=== PATIENT | female | born 1970 | race Caucasian/White ===

== ENCOUNTER 2016-11-26 11:24 | Emergency (ER) | payer BC ==
[2016-11-26 12:23] VITALS: BP 106/58
--- NOTE | 2016-11-26 14:39 | UC ---
Skin Complaint HPI - History of Current Complaint Chief Complaint: UCSkin Time Seen by Provider: 11/26/16 14:16 Stated Complaint: SOFT TISSUE Hx Obtained From: Patient Hx Last Menstrual Period: mirana ?: No Onset/Duration: Gradual Onset - started 2 days ago with painful lump under chin , denies recent illness denies worse swelling after eating, states mouth is moist Aggravating: Touch Alleviating: Nothing Associated Signs & Symptoms: Positive: Negative - Allergy/Home Medications Allergies/Adverse Reactions: Allergies Allergy/AdvReac Type Severity Reaction Status Date / Time Penicillins Allergy Intermediate Hives Verified 08/10/12 14:45 Home Medications: Home Medications Aspirin [Aspirin 81 MG TAB] 81 mg PO 11/26/16 [History] Atenolol TAB* [Tenormin TAB* 25 MG] 12.5 mg PO DAILY 11/26/16 [History Confirmed 11/26/16] Biotin 1 mg PO 11/26/16 [History] Herod-3 Fatty Acids [Fish Oil] 1,000 mg PO 11/26/16 [History] Review of Systems Constitutional: Negative Respiratory: Negative Cardiovascular: Negative Psychological: Negative All Other Systems Reviewed And Are Negative: Yes PMH/Surg Hx/FS Hx/Imm Hx Previously Healthy: Yes Cardiovascular History: Myocardial Infarction - Surgical History Surgical History: Yes Surgery Procedure, Year, and Place: 1998, [facility]. Angioplasty 04/02/12 - Family History Known Family History: Positive: None - Social History Occupation: Employed Full-time Lives: With Family Alcohol Use: Rare Substance Use Type: None Smoking Status (MU): Former Smoker Physical Exam Triage Information Reviewed: Yes Appearance: Well-Appearing, No Pain Distress, Well-Nourished Vital Signs: Initial Vital Signs Temp 98.3 F 11/26/16 12:20 Pulse 57 11/26/16 12:20 Resp 18 11/26/16 12:20 BP 106/58 11/26/16 12:20 Pulse Ox 100 11/26/16 12:20 ENT: Positive: Normal ENT inspection - mouth moist Dental Exam: Normal Respiratory Exam: Normal Cardiovascular Exam: Normal Neurological Exam: Normal Psychological Exam: Normal Skin: Positive: Other - small. pea sized tender mobile mass submental area chin , no redness or warmth no other LAD Course/Dx - Differential Diagnoses - Skin Complaint Differential Diagnoses: Abscess, Lymphadenitis - Diagnoses Provider Diagnoses: lymphadenopathy Discharge - Discharge Plan Condition: Good Disposition: HOME Patient Education Materials: Lymphadenopathy (ED) Referrals: Ranjeet Berry MD [Primary Care Provider] - 2 Days (if no better) Additional Instructions: drink plenty of fluids return if problems worsen recheck with primary care provider if no better 3-5 days
== END 2016-11-26 14:53 | disposition home or self-care (01) ==
LOC: UCEAST 11:24
DX: R59.1 Generalized enlarged lymph nodes (principal); I25.2 Old myocardial infarction; Z87.891 Personal history of nicotine dependence
CPT/HCPCS: 99211; G0463

== ENCOUNTER 2016-11-29 07:54 | Emergency (ER) | payer BC ==
[2016-11-29 08:21] LABS: Hematocrit 43 % (35-47); Hemoglobin 14.4 g/dl (12.0-16.0); Mean Corpuscular HGB Conc 34 g/dl (31-36); Mean Corpuscular Hemoglobin 31 pg (27-31); Mean Corpuscular Volume 92 fL (80-97); Mean Platelet Volume 9 um3 (7.4-10.4); Red Blood Count 4.66 10^6/ul (4.0-5.4); Red Cell Distribution Width 13 % (10.5-15); White Blood Count 7.9 10^3/ul (3.5-10.8)
--- NOTE | 2016-11-29 08:32 | RAD ---
Indication: Left-sided facial droop, speech abnormality. CT of the brain was performed without IV contrast. Ventricular system midline. No midline shift is noted. The extra-axial spaces are unremarkable. There is no evidence of intracranial mass or hemorrhage. No other high or low density lesions are identified. Mastoid air cells and paranasal sinuses are otherwise unremarkable. Mucus retention cyst is noted in the left maxillary sinus. IMPRESSION: No intracranial mass or hemorrhage is noted.
[2016-11-29 08:40] LABS: Albumin 4.5 g/dL (3.2-5.2); BUN/Creatinine Ratio 18.9 (8-20); Calcium 9.1 mg/dL (8.6-10.3); EGFR African American 109.1 (>60); EGFR Non-African American 84.9 (>60); Globulin 2.6 g/dL (2-4); Potassium 4.1 mmol/L (3.5-5.0); Total Bilirubin 1.9 mg/dL (0.2-1.0); Total Protein 7.1 g/dL (6.4-8.9)
--- NOTE | 2016-11-29 08:55 | RAD ---
INDICATION: Tremors. COMPARISON: Comparison is made with prior chest x-ray study from April 02, 2015. TECHNIQUE: Dual-energy PA and lateral views of the chest were obtained. FINDINGS: The heart is within normal limits in size. Mediastinal and hilar contours appear within normal limits. The lungs are clear. No pleural effusion is present. IMPRESSION: NO EVIDENCE FOR ACTIVE CARDIOPULMONARY DISEASE.
[2016-11-29] MEDS ORDERED: Iohexol 350* (CONTRAST) 500 ML MDV IV ONE (09:49)
[2016-11-29] MEDS ORDERED: Aspirin Low Dose CHEW TAB* 81 MG PO SCH (10:00)
[2016-11-29 10:18] LABS: Urine Bacteria 1+ (Absent); Urine Bilirubin Negative (Negative); Urine Glucose Negative (Negative); Urine Nitrite Negative (Negative)
[2016-11-29 10:24] LABS: Benzodiazepine Urine Screen None Detected (None Detect)
--- NOTE | 2016-11-29 11:07 | RAD ---
INDICATION: TIA evaluate for stenosis. COMPARISON: Comparison is made with a prior CT of the brain from November 29, 2016. TECHNIQUE: A CT angiogram of the head and neck was performed following intravenous injection of 80 ml of Omnipaque 350 nonionic contrast. Contiguous axial sections were obtained from the thoracic inlet through the skull vertex. Images were reconstructed in the coronal and sagittal planes and in a 3-D volume rendered format. The distal cervical internal carotid artery diameter is used as the denominator for stenosis measurement. FINDINGS: RIGHT CAROTID: The common and internal carotid arteries appear patent without evidence for stenosis. LEFT CAROTID: The common and internal carotid arteries appear patent without evidence for stenosis. VERTEBRALS: The vertebral arteries appear patent and symmetric. CTA BRAIN: The internal carotid, anterior and middle cerebral arteries appear patent without evidence for high-grade stenosis or occlusion. The vertebral, basilar and posterior cerebral arteries appear patent without evidence for high-grade stenosis or occlusion. No gross focal perfusion abnormalities are seen. No aneurysm or vascular malformation is seen. NECK: No significant enlarged lymph nodes are seen within the neck. The thyroid, parotid and submandibular glands appear to be within normal limits. The lung apices appear clear. There is a 2 cm mucous retention cyst within the left maxillary sinus. The sinuses and mastoid air cells are otherwise clear. IMPRESSION: NO EVIDENCE FOR CAROTID STENOSIS OR LARGE VESSEL INTRACRANIAL THROMBUS. CPT II Codes: 3100F
--- NOTE | 2016-11-29 11:36 | RAD ---
INDICATION: Left-sided facial droop COMPARISON: CTA head and neck November 29, 2016; CT brain November 29, 2016 TECHNIQUE: sagittal T1 FLAIR, axial diffusion, axial T1 FLAIR, axial T2, axial T2 FLAIR, and SWI images were acquired. FINDINGS: Craniocervical junction: The craniocervical junction appears normal. Ventricles/sulci: The ventricles and cisterns are normal in size and configuration for age. Brain parenchyma: There are no acute appearing focal parenchymal abnormalities. There are scattered T2-weighted hyperintensities in periventricular and subcortical white matter consistent with mild chronic microvascular ischemic change. There is no evidence of intracranial mass or mass effect. The diffusion weighted images show no evidence of acute ischemia. Intracranial hemorrhage: There is no intracranial hemorrhage. Extra-axial spaces: There are no extra-axial fluid collections or masses. Orbits: There are no MR abnormalities of the orbital structures. Paranasal sinuses/mastoid: The paranasal sinuses are clear. The mastoid air cells are well aerated.. Vascular: No abnormalities are seen. Other: None IMPRESSION: SCATTERED T2-WEIGHTED HYPERINTENSITIES CONSISTENT WITH MILD CHRONIC MICROVASCULAR ISCHEMIC CHANGE. NO ACUTE FINDINGS.
[2016-11-29] MEDS ORDERED: ValACYclovir (*) 1 GM TAB PO ONE (12:00)
[2016-11-29] MEDS ORDERED: ValACYclovir (*) 500 MG TAB PO ONE ×2 (12:00→13:00)
--- NOTE | 2016-11-29 13:23 | ED ---
Cory Davies Alfonso, scribed for Indra Ornelas MD on 11/29/16 at 0812 . Complex/Multi-Sys Presentation - HPI Summary HPI Summary: This patient is a 46 year old F BIBA to [facility] with a chief complaint of tremors since 0645 this morning. Pt states I woke up and noticed the left side of my face drooping and I cannot control the shaking. Pt rates the pain 0/10 in severity. Symptoms aggravated and alleviated by nothing. Pt reports blurry vision, change in speech, and left- sided facial droop. She denies recent trauma. Pt was d/c from [facility] 3 days ago with provider diagnoses of abscess and lymphadenitis. PMHx of anxiety (pt reports with tremoring but less severe),[place] ( 2011), and HTN. - History Of Current Complaint Time Seen by Provider: 11/29/16 08:03 Hx Obtained From: Patient Onset/Duration: Sudden Onset, Lasting Hours - Since 0645 this morning, Still Present Timing: Constant Severity Currently: Moderate Severity Initially: Moderate Aggravating Factor(s): Nothing Alleviating Factor(s): Nothing Associated Signs And Symptoms: Positive: Other - Pt reports blurry vision, change in speech, and left- sided facial droop.. Negative: Recent Trauma - Allergies/Home Medications Allergies/Adverse Reactions: Allergies Allergy/AdvReac Type Severity Reaction Status Date / Time Penicillins Allergy Intermediate Hives Verified 08/10/12 14:45 Home Medications: Home Medications Aspirin EC Low Dose* [Ecotrin EC Low Dose 81 MG*] 81 mg PO DAILY 11/29/16 [ History Confirmed 11/29/16] PMH/Surg Hx/FS Hx/Imm Hx Endocrine/Hematology History: Denies: Hx Diabetes Cardiovascular History: Reports: Hx Hypertension, Hx Myocardial Infarction - 2011 Psychiatric History: Reports: Hx Anxiety - Surgical History Surgery Procedure, Year, and Place: 1998, [place] [facility]. Angioplasty 04/02/12 Hx Anesthesia Reactions: No - Family History Known Family History: Positive: Other - Cancer - Social History Alcohol Use: Rare Substance Use Type: Reports: None Smoking Status (MU): Former Smoker Review of Systems Positive: Blurred Vision Neurological: Other - Positive tremors, change in speech, and left- sided facial droop. All Other Systems Reviewed And Are Negative: Yes Physical Exam - Summary Physical Exam Summary: VITAL SIGNS: Reviewed. GENERAL: Patient is a well-developed and nourished female who is lying comfortable in the stretcher. Patient is not in any acute respiratory distress. HEAD AND FACE: No signs of trauma. No ecchymosis, hematomas or skull depressions. No sinus tenderness. EYES: PERRLA, EOMI x 2, No injected conjunctiva, no nystagmus. No photophobia. EARS: Hearing grossly intact. Ear canals and tympanic membranes are within normal limits. MOUTH: Oropharynx within normal limits. NECK: Supple, trachea is midline, no adenopathy, no JVD, no carotid bruit, no c- spine tenderness, neck with full ROM. No meningeal signs, no Kernig's or brudzinskis signs. CHEST: Symmetric, no tenderness at palpation LUNGS: Clear to auscultation bilaterally. No wheezing or crackles. CVS: Regular rate and rhythm, S1 and S2 present, no murmurs or gallops appreciated. ABDOMEN: Soft, non-tender. No signs of distention. No rebound no guarding, and no masses palpated. Bowel sounds are normal. EXTREMITIES: FROM in all major joints, no edema, no cyanosis or clubbing. NEURO: Alert and oriented x 3. No acute neurological deficits. Speech is normal and follows commands. Intentional tremors. SKIN: Dry and warm Triage Information Reviewed: Yes Vital Signs On Initial Exam: Initial Vitals Temp Pulse Resp BP Pulse Ox 99.0 F 77 20 139/106 99 11/29/16 08:04 11/29/16 08:04 11/29/16 08:04 11/29/16 08:04 11/29/16 08:04 Vital Signs Reviewed: Yes Diagnostics - Vital Signs Vital Signs Temp Pulse Resp BP Pulse Ox 11/29/16 09:00 71 127/66 98 11/29/16 08:47 125/66 11/29/16 08:39 99.4 F 73 13 125/66 99 11/29/16 08:17 75 22 99 11/29/16 08:16 73 16 100 11/29/16 08:04 99.0 F 77 20 139/106 99 - Laboratory Lab Results: Lab Results 11/29/16 11/29/16 11/29/16 Range/Units 08:10 08:10 08:10 WBC 7.9 (3.5-10.8) 10^3/ul RBC 4.66 (4.0-5.4) 10^6/ul Hgb 14.4 (12.0-16.0) g/dl Hct 43 (35-47) % MCV 92 (80-97) fL MCH 31 (27-31) pg MCHC 34 (31-36) g/dl RDW 13 (10.5-15) % Plt Count 194 (150-450) 10^3/ul MPV 9 (7.4-10.4) um3 Neut % (Auto) 73.5 (38-83) % Lymph % (Auto) 18.3 L (25-47) % Wharton % (Auto) 7.4 (1-9) % Eos % (Auto) 0.3 (0-6) % Baso % (Auto) 0.5 (0-2) % Absolute Neuts (auto) 5.8 (1.5-7.7) 10^3/ul Absolute Lymphs (auto) 1.4 (1.0-4.8) 10^3/ul Absolute Monos (auto) 0.6 (0-0.8) 10^3/ul Absolute Eos (auto) 0 (0-0.6) 10^3/ul Absolute Basos (auto) 0 (0-0.2) 10^3/ul Absolute Nucleated RBC 0 10^3/ul Nucleated RBC % 0 INR (Anticoag Therapy) 0.89 (0.89-1.11) Sodium 136 (133-145) mmol/L Potassium 4.1 (3.5-5.0) mmol/L Chloride 105 (101-111) mmol/L Carbon Dioxide 23 (22-32) mmol/L Anion Gap 8 (2-11) mmol/L BUN 14 (6-24) mg/dL Creatinine 0.74 (0.51-0.95) mg/dL Est GFR ( Amer) 109.1 (>60) Est GFR (Non-Af Amer) 84.9 (>60) BUN/Creatinine Ratio 18.9 (8-20) Glucose 105 H (70-100) mg/dL Lactic Acid (0.5-2.0) mmol/L Calcium 9.1 (8.6-10.3) mg/dL Total Bilirubin 1.90 H (0.2-1.0) mg/dL AST 16 (13-39) U/L ALT 13 (7-52) U/L Alkaline Phosphatase 53 (34-104) U/L Troponin I 0.00 (<0.04) ng/mL Total Protein 7.1 (6.4-8.9) g/dL Albumin 4.5 (3.2-5.2) g/dL Globulin 2.6 (2-4) g/dL Albumin/Globulin Ratio 1.7 (1-3) / Range/Units 08:10 WBC (3.5-10.8) 10^3/ul RBC (4.0-5.4) 10^6/ul Hgb (12.0-16.0) g/dl Hct (35-47) % MCV (80-97) fL MCH (27-31) pg MCHC (31-36) g/dl RDW (10.5-15) % Plt Count (150-450) 10^3/ul MPV (7.4-10.4) um3 Neut % (Auto) (38-83) % Lymph % (Auto) (25-47) % Wharton % (Auto) (1-9) % Eos % (Auto) (0-6) % Baso % (Auto) (0-2) % Absolute Neuts (auto) (1.5-7.7) 10^3/ul Absolute Lymphs (auto) (1.0-4.8) 10^3/ul Absolute Monos (auto) (0-0.8) 10^3/ul Absolute Eos (auto) (0-0.6) 10^3/ul Absolute Basos (auto) (0-0.2) 10^3/ul Absolute Nucleated RBC 10^3/ul Nucleated RBC % INR (Anticoag Therapy) (0.89-1.11) Sodium (133-145) mmol/L Potassium (3.5-5.0) mmol/L Chloride (101-111) mmol/L Carbon Dioxide (22-32) mmol/L Anion Gap (2-11) mmol/L BUN (6-24) mg/dL Creatinine (0.51-0.95) mg/dL Est GFR ( Amer) (>60) Est GFR (Non-Af Amer) (>60) BUN/Creatinine Ratio (8-20) Glucose (70-100) mg/dL Lactic Acid 1.4 (0.5-2.0) mmol/L Calcium (8.6-10.3) mg/dL Total Bilirubin (0.2-1.0) mg/dL AST (13-39) U/L ALT (7-52) U/L Alkaline Phosphatase (34-104) U/L Troponin I (<0.04) ng/mL Total Protein (6.4-8.9) g/dL Albumin (3.2-5.2) g/dL Globulin (2-4) g/dL Albumin/Globulin Ratio (1-3) Result Diagrams: 11/29/16 08:10 11/29/16 08:10 Lab Statement: Any lab studies that have been ordered have been reviewed, and results considered in the medical decision making process. - Radiology CXR Radiology Interpretation Completed By: Radiologist - NO EVIDENCE FOR ACTIVE CARDIOPULMONARY DISEASE. - CT Brain CT CT Interpretation Completed By: Radiologist - No intracranial mass or hemorrhage is noted. 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 Non-Paretic Hand: Both Correctly Best Gaze (Only Horizontal Eye Movement): Normal Visual Field Testing: No Visual Loss Facial Paresis-Pt to Smile & Close Eyes or Grimace Symmetry: Normal/Symmetrical Motor Function - Right Arm: No Drift-Holds 10 Seconds Motor Function - Left Arm: No Drift-Holds 10 Seconds Motor Function - Right Leg: No Drift-Holds 10 Seconds Motor Function - Left Leg: No Drift-Holds 10 Seconds Limb Ataxia-Must be out of Proportion to Weakness Present: Absent Sensory (Use Pinprick to Test Arms/Legs/Trunk/Face): Normal Best Language (Describe Picture, Name Items): No Aphasia Dysarthria (Read Several Words): Normal Extinction and Inattention: No Abnormality Total Score: 0 Complex Multi-Symp Course/Dx Assessment/Plan: This patient is a 46 year old F BIBA to [facility] with a chief complaint of tremors since 0645 this morning. Pt states I woke up and noticed the left side of my face drooping and I cannot control the shaking. Pt rates the pain 0/10 in severity. Symptoms aggravated and alleviated by nothing. Pt reports blurry vision, change in speech, and left- sided facial droop. She denies recent trauma. Pt was d/c from [facility] 3 days ago with provider diagnosis of abscess and lymphadenitis. PMHx of anxiety (pt reports with tremoring but less severe),[place] (2011), and HTN. In the ED course an IV access was obtained. Patient was placed in a cardiac rn. Patient was started with IV fluids. Labs without any significant abnormality. Troponin #1: 0.00. EKG shows a NSR at 68 BPM w/o ST elevations. CXR impression: No acute pathology. Head CT IMPRESSION: No intracranial mass or hemorrhage is noted. I discuss my physical exam, findings and test results with Dr. Ty from the hospitalist services and she agrees to admit patient to his services. Patient is hemodynamically stable alert and oriented x 3. I discussed the case with Dr Dunlap and she recommends to admit the patient to the hospitalist services. I discussed the case with Dr. Ty and after examination she ordered and MRI and requested for Dr. Dunlap to see the patient. Dr Dunlap examined the patient and ordered a EEG. After her examination she decided that patient has [place] Palsy. Patient was given Valtrex and prednisone. She will be discharged home with F/U PMD. I discussed all the findings and test results with the patient. Patient was instructed to return to the emergency room immediately if any of the symptoms return or worsens. Patient understands and agrees. Plan of care was discussed with the patient and patient understands and agrees with the plan of care. All questions were answered at patient satisfaction. There were no further complaints or concerns. Patient is alert and oriented x 3. Patient vital signs are stable. Patient is to follow up with primary care physician in the next 2 to 3 days. Patient understands and agrees. - Diagnoses Differential Diagnoses/HQI/PQRI: CVA, Other - TIA, Seizure, tremors Provider Diagnoses: Márquez's palsy - Physician Notifications Discussed Care Of Patient With: Sara Dunlap Time Discussed With Above Provider: 08:54 Instructed by Provider To: Other - Consulted Dr. Dunlap (neurology) who recommended for admission to r/o TIA. Dr. Dunlap will consult for the patient. Consulted Dr. Ty (hospitalist) at 1105 who agrees to admit the patient. Discharge - Discharge Plan Condition: Stable Disposition: HOME The documentation as recorded by the Cory pat Alfonso accurately reflects the service I personally performed and the decisions made by , Indra Ornelas MD.
[2016-11-29 14:00] VITALS: BP 124/72
--- NOTE | 2016-11-29 15:12 | CONS ---
CC: Dr. Hemphill * NEUROLOGY CONSULTATION: DATE OF CONSULT: 11/29/16. REQUESTING PROVIDER: Dr. Ornelas in the ER. REASON FOR CONSULT: Left facial droop, tremors. HISTORY OF PRESENT ILLNESS: Ana M Oconnor is a 46-year-old woman with a history of anxiety and myocardial infarction in 2011, on atorvastatin, low dose aspirin and atenolol, who presented to the emergency department after waking up with left facial weakness. She reports waking up and her face felt heavy and when she looked in the bathroom mirror, she thought that her face looked weak. She took a picture of herself and then became concerned that she might be having a stroke. She then felt somewhat disoriented and says that she felt generally weak and developed diffuse body trembling. She maintained consciousness throughout this episode. She called her son who met her at the end of her seasonal [place] and was brought to the emergency department for further evaluation. She continues to report that the left side of her face feels different than the right. She has not noticed any vision issues. She did not have any unilateral weakness or numbness of extremities. She has not had any headache with this episode. She did have somewhat monotonous, robotic sounding speech according to her mother with this episode, but that has passed. She denies any hearing changes or noticing any paced changes. She has never had anything like this happen to her in the past. Separately, the patient also describes intermittent episodes of disorientation where she just does not "feel right." She will sometimes zone out. She says she still maintains consciousness during these episodes and it is difficult to quantify how often these are occurring. Her mother says that when she was a child, she was diagnosed with a petit mal seizure when she was on the school bus one day and was fidgeting around, trying to put something in her pocket and could not seem to find her pocket. She may have had an EEG at that time, which was possibly abnormal, but mom is not sure. She has never had any convulsions. When asked if she has lost consciousness in the past, she says that she has episodes of "hypotension" and 4 times this month she has requested assistance from her fiance in getting out of the shower because she felt lightheaded and faint. She also has a history of a myocardial infarction in the past, which was apparently small and secondary to a branch vessel, which was too small to be intervened upon. She is a patient of Dr. Shepard and does not otherwise have a PCP. She has a family history of autoimmunity including hypercoagulable state in her maternal aunt, who had lupus anticoagulant and also sarcoidosis. Her mother has Graves disease and apparently thrombocytopenia. The patient herself is not aware of any hypercoagulable state in herself. PAST MEDICAL HISTORY: 1. Myocardial infarction as mentioned above. 2. Probable migraine headaches. 3. Anxiety. HOME MEDICATIONS: 1. Biotin 1 mg daily. 2. Lipitor 40 mg daily. 3. Atenolol 12.5 mg daily. 4. Aspirin 81 mg daily. 5. Fish oil 1000 mg daily. 6. CoQ10 200 mg daily. ALLERGIES: PENICILLIN causes hives. FAMILY HISTORY: As noted in the HPI. SOCIAL HISTORY: She has a 17-year-old son. She is engaged to be . 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 She quit smoking when she was 34. REVIEW OF SYSTEMS: She denies any recent viral illness, but did go to urgent care recently for a painful lymph node under her chin, which is now better. PHYSICAL EXAM: Vital Signs: Temperature 99.4, blood pressure 113/54, heart rate 65, oxygen saturation is 99% on room air. On general examination, she is pleasant, in no acute distress. She has a mildly anxious affect. Her heart is in a regular rate and rhythm with no murmurs, rubs, or gallops. Lungs are clear to auscultation bilaterally. She has some blotchiness/hives over her chest and neck which happens when she gets anxious. She is not tremulous. She has occasional myokymia of the orbicularis oculi on the left. No lesions in the external auditory canal on the left. On neurologic examination, she was fully awake, alert and oriented. Her speech is clear without dysarthria or aphasia. On cranial nerve testing, the pupils are equal, round and reactive from 4 to 2 mm bilaterally. Versions are full without nystagmus or diplopia. Visual sanchez are full to confrontation with no extinction to double simultaneous stimulation. The palpebral fissures are equal bilaterally. She does have slightly delayed blink on the left. Her eye closure is full and symmetric. It appears that the left forehead raises slightly less than the right forehead. She has flattening of the left nasolabial fold and slightly less activation with smile. Lip closure and cheek puff are pretty equal. Hearing is intact to voice and there is no obvious hyperacusis with the tuning fork placed outside of either ear. The palate elevates symmetrically and the tongue is midline. Her sensation to taste was tested with sugar water and she was not able to taste the sweet water on the left side of her tongue, but was able to taste it on the right. Shoulder shrug is full and symmetric. On motor examination, she has normal strength in the upper and lower extremities with no pronator drift. Sensation is intact to light touch in the upper and lower extremities. Finger-to- nose is intact without ataxia. Reflexes are 2+ throughout. Romberg is negative. Her gait is normal and she is able to heel-toe and tandem walk, though she says she feels a little unsteady with tandem walking. DIAGNOSTIC STUDIES/LAB DATA: CBC was unremarkable. CMP was notable for a glucose of 105 and total bilirubin of 1.9 and otherwise unremarkable. Her lactate is 1.4. Urinalysis showed 2+ blood, trace leukocyte esterase and 1+ bacteria as well as the presence of epithelial cells. Urine toxicology was negative. A CT angiogram of her head and neck was obtained and was unremarkable. Brain MRI was also obtained and was personally reviewed and shows no areas of restricted diffusion. There are few scattered areas of elevated T2/FLAIR signal in the periventricular white matter which are probably consistent with microvascular changes. IMPRESSION AND PLAN: Ana M Oconnor is a 46-year-old woman with a history of myocardial infarction in the past, who presented with slight left facial weakness in addition to monotonous speech and whole body trembling with preserved consciousness. 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 Her MRI does not show any acute ischemic lesions. I have spoken with Dr. Ornelas about my impression and I do not feel that she needs an admission to the hospital at this time. She will be started on prednisone plus or minus acyclovir. The typical course of Márquez's palsy was discussed with the patient including eye care if her eye becomes significantly weak. I think that the overall body tremulousness as well as the monotonous, robotic speech was likely related to anxiety secondary to worry that she was possible having a stroke. This was discussed with the patient and her mother as well. Separately, she describes these episodes of disorientation and the possibility of a seizure in the past. Since she is here now, we will obtain a quick EEG on her to screen for any epileptiform abnormalities. If anything unusual is found , then I will discuss further with her starting an antiepileptic medication versus following up with me as an outpatient. Thank you for this consultation. [id number]/[facility] #: [id number] NUBIA
--- NOTE | 2016-11-29 15:45 | CONS ---
CC: Dr. Dunlap; Dr. Hemphill; Dr. Ornelas * CONSULTATION REPORT: DATE OF CONSULT: 11/29/16 - EMERGENCY DEPT PRIMARY CARE PROVIDER: None. SHORE WORKING SUPERVISOR: Dr. Hemphill. REQUESTING PHYSICIANS: Dr. Dunlap and Dr. Ornelas. REASON FOR CONSULTATION: Possibility of TIA/stroke. The consultation was requested by Dr. Ornelas from Emergency Medicine for possibility of patient's admission. CHIEF COMPLAINT: Left sided facial droop. HISTORY OF PRESENT ILLNESS: Ana M Oconnor is a 46-year-old female with history of coronary artery disease who presented to the hospital complaining of left facial droop. The patient stated that she woke up today in the morning and she noted that her left side of her face was "flat". She took a picture of herself. She also stated that at that point she noted that her speech was somewhat "staccato" or robotic as she named it. She stated that her speech was clear but slow and measured. She also at that point developed generalized tremors that when witnessed by Dr. Ornelas, thought to be intentional. Those tremors resolved by the time I saw the patient in consultation. The patient stated that she had been up to that point in her usual state of health, although 2 days ago she was seen in [facility] for enlarged lymph nodes underneath her chin for which she had been taken ibuprofen on a p.r.n. basis and it had been getting better. A consultation was requested by Dr. Ornelas in regards to possibility of evaluation for CVA versus TIA. PAST MEDICAL HISTORY: 1. History of cardiac catheterization at [facility] 4 to 5 years ago with noted small vessel coronary artery disease. It was not amendable for intervention. Since then patient had been under the care of Dr. Hemphill. 2. History of chronic headaches, ever since patient was a teenager. Patient stated that once she was placed on atenolol it helped with the headaches. 3. History of right upper lung nodules 0.[address] Ko most likely benign. 4. History of questionable nonepileptic seizures as a child and chronic migrainous headaches as premenstrual symptom with blurry vision that had improved once patient started using hormonal contraception. MEDICATIONS: Include: 1. Atorvastatin 20 mg daily. 2. Atenolol 12.5 mg daily. 3. Aspirin 81 mg daily. 4. Fish oil 1 capsule daily. 5. Coenzyme Q-10 1 capsule daily. 6. Biotin 1 tablet daily. ALLERGIES: BEE STINGS AND PENICILLIN. PENICILLIN causes hives. FAMILY HISTORY: Positive for mother with Graves. Father with diabetes. Patient's aunt on the mother side also had brain tumor. SOCIAL HISTORY: The patient quit smoking 10 years ago. She drinks alcohol rarely. She denies any drug use. 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 Her surrogate is her mother. REVIEW OF SYSTEMS: Please see history of present illness. Remaining 14- systems were reviewed with the patient and otherwise negative. PHYSICAL EXAMINATION: GENERAL: The patient is very pleasant 46-year-old female who is in no acute distress. The patient is alert, awake and oriented x3. VITAL SIGNS: Blood pressure 113/54, heart rate 65 and regular, respiratory rate 14, oxygen saturation 99% on room air, temperature of 99.4. HEENT: Head atraumatic, normocephalic. Eyes: Pupils equal and reactive to light and accommodation. Oropharynx clear. Mucosa moist. NECK: Supple. No JVD. No bruits bilaterally. CARDIOVASCULAR: Regular rate and rhythm. No murmur. RESPIRATORY: Clear to auscultation bilaterally. ABDOMEN: Soft, nontender. Bowel sounds present in all 4 quadrants. EXTREMITIES: There is no edema. Pulses are +2 bilaterally. No clubbing or cyanosis. On palpation of patient's neck she does have small, enlarged, nontender lymph node just posteriorly to her chin of approximately 1 x 2 cm. There is no other lymphadenopathy noted in the neck. NEURO EVALUATION: Speech clear. The patient appears to have left facial nerve palsy or Márquez's palsy. She does appear to have lesser involvement of the forehead . She definitely has involvement of the eye. Otherwise motor strength is 5/5 bilaterally in bilateral upper and lower extremities. Gait is steady. The tremors that where described by the ER physician resolved. Her speech is clear and fluent. SKIN: On examination of the skin no ecchymotic areas or rashes noted. The patient does have sunburn noted on her abdomen. LABORATORY DATA/DIAGNOSTIC STUDIES: White blood cell count of 8.9, hemoglobin 14.4, hematocrit 43 and platelets of 194. Sodium of 136, potassium 4.1, chloride 105, carbon dioxide 23, BUN 14, creatinine 0.74. Liver function tests were unremarkable. Total bilirubin 1.9, slightly elevated. Urinalysis +2 blood trace esterase, +1 bacteria. Urine drug screen is negative. Head and neck CTA showed "no evidence of carotid stenosis, large vessel of intracranial thrombus." Brain MRI, impression: "Scattered T2 weighted hyperintensities consistent with a chronic microvascular ischemic change. No acute findings." ASSESSMENT AND PLAN: 1. Left sided facial droop which, as per physical evaluation, it appears to be due to Márquez's palsy. The patient does appear to have partial forehead sparing on the left side. Due to that I asked Dr. Dunlap for evaluation. Dr. 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 At this point patient does not require to be admitted for Márquez's palsy. Her other neuro work up including MRI and CT angiogram were negative as above. The patient was referred back to Dr. Ornelas the emergency department physician for further recommendations and outpatient treatment of Márquez's palsy. 2. In regards to patient's history of coronary artery disease, patient had no symptoms of chest pain or shortness of breath. Her troponin was 0. The recommendation is to continue her outpatient medications and followup with Dr. Hemphill as previously scheduled. TIME SPENT: Overall approximately 72 minutes was spent in consultation of this patient. Thank you very much for allowing me to see your patient in consultation. Once again patient was referred back to the ER physician. [id number]/[facility] #: [id number] MTDD
--- NOTE | 2016-11-30 11:44 | EEG ---
ELECTROENCEPHALOGRAPHY: DATE OF STUDY: 11/29/16 LOCATION: The patient is in the emergency department. REQUESTING PHYSICIAN: Dr. Dunlap. CLINICAL PROBLEM: Ana M Oconnor is a 46-year-old woman with a history of myocardial infarction in the past, who presented to the emergency department with left facial weakness, whole body tremors, and monotonous speech. She also describes episodes where she "becomes disoriented," which have been happening periodically for many years. 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 EEG is requested to evaluate for epileptiform abnormalities. MEDICATIONS: 1. CoQ10. 2. Lipitor. 3. Fish oil. 4. Biotin. 5. Aspirin 81 mg. 6. Atenolol. REPORT: The waking background showed appropriate organization with clearly- defined anterior to posterior voltage and frequency gradients. There was a well -defined posterior dominant rhythm of 10-11 Hz, which was symmetrical and showed normal reactivity. Anteriorly, there is an expected pattern of lower voltage, irregular, mixed faster frequencies. Photic stimulation and hyperventilation were not performed. Throughout the recording, there were no epileptiform discharges, focal features , paroxysmal features, or significant interhemispheric asymmetries. CLINICAL IMPRESSION: This is a normal waking EEG. There are no epileptiform abnormalities. [id number]/[facility] #: [id number] M[facility] ST[facility] CHILDREN'S HOSPITALCristina
== END 2016-11-29 14:07 | disposition home or self-care (01) ==
LOC: ED 07:54 → MEDTELE 09:43 → UNDOADMOB 09:43
DX: G51.0 Bell's palsy (principal); H53.8 Other visual disturbances; Z87.891 Personal history of nicotine dependence; Z86.79 Personal history of other diseases of the circulatory system; R47.81 Slurred speech
CPT/HCPCS: 36415; 70450; 70496; 70498; 70551; 71020; 80053; 80307; 81003; 81015; 83605; 84484; 85025; 85610; 87086; 93005; 95816; 99284; A9270-GY; Q9967

== ENCOUNTER 2017-05-16 15:15 | Emergency (ER) | payer BC ==
[2017-05-16 15:42] VITALS: BP 143/65
--- NOTE | 2017-05-16 16:50 | UC ---
Throat Pain/Nasal Bar HPI - HPI Summary HPI Summary: 47 y/o white female presents with left ear/facial pain for the past 2 weeks. She tells me she went to the urgent care in [place] 2 weeks ago for this and was diagnosed with an ear infection and prescribed ceftin for 10 days. She took this and felt some relief, but her symptoms returned as before after stopping antibiotic. 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 Today she has pain above and below her left eye and pain in the left TMJ area. She denies fever, chills, recent illness/URI, cough, ST, vision changes, headache, dizziness, cough, sinus symptoms, chest pain, or SOB. - History of Current Complaint Chief Complaint: UCGeneralIllness Stated Complaint: EAR AND SINUS PAIN Hx Last Menstrual Period: mirena Onset/Duration: Gradual Onset Severity: Moderate Pain Intensity: 5 Pain Scale Used: 0-10 Numeric - Allergies/Home Medications Allergies/Adverse Reactions: Allergies Allergy/AdvReac Type Severity Reaction Status Date / Time Penicillins Allergy Intermediate Hives Verified 05/16/17 15:42 Home Medications: Home Medications Citalopram TAB* [Celexa TAB*] 5 mg PO DAILY 05/16/17 [History Confirmed 05/16/17 ] PMH/Surg Hx/FS Hx/Imm Hx Endocrine History: Dyslipidemia Cardiovascular History: Cardiac Disease, Hypertension GI/ History: Gastroesophageal Reflux - Surgical History Surgical History: Yes Surgery Procedure, Year, and Place: 1998, [facility] [place]. Angioplasty 04/02/12 - Family History Known Family History: Positive: None, Other - Cancer - Social History Occupation: Employed Full-time Lives: With Family Alcohol Use: Rare Substance Use Type: None Smoking Status (MU): Former Smoker Review of Systems Constitutional: Negative Skin: Negative Eyes: Negative ENT: Ear Ache Respiratory: Negative Cardiovascular: Negative Gastrointestinal: Negative Neurological: Negative All Other Systems Reviewed And Are Negative: Yes Physical Exam Triage Information Reviewed: Yes Appearance: Well-Appearing, No Pain Distress, Well-Nourished Vital Signs: Initial Vital Signs Temp 97.8 F 05/16/17 15:38 Pulse 57 05/16/17 15:38 Resp 20 05/16/17 15:38 BP 143/65 05/16/17 15:38 Pulse Ox 100 05/16/17 15:38 Vital Signs Reviewed: Yes Eyes: Positive: Conjunctiva Clear, Other: - EOMI. PERRLA. No injection.. Negative: Conjunctiva Inflamed, Discharge ENT: Positive: Hearing grossly normal, Pharynx normal, TMs normal, Uvula midline. Negative: Pharyngeal erythema, Nasal congestion, Nasal drainage, TM bulging, TM dull, TM red, Tonsillar swelling, Tonsillar exudate, Muffled voice, Hoarse voice, Sinus tenderness Neck: Positive: Supple, No Lymphadenopathy, Other: - NTTP. FROM. Respiratory: Positive: Chest non-tender, Lungs clear, Normal breath sounds, No respiratory distress, No accessory muscle use Cardiovascular: Positive: RRR, No Murmur, Pulses Normal Musculoskeletal: Positive: Strength Intact - B/L UEs, ROM Intact - B/L UEs, Other: - TTP above and below left eye. TTP over left TMJ. No left tragus or auricular tenderness. Neurological: Positive: Alert, Muscle Tone Normal, Other: - CN II-XII grossly intact. No focal deficits. Sensations intact and symmetric V1, V2, V3. No facial drooping. Speech intact. Psychological: Positive: Age Appropriate Behavior Skin: Positive: Other - No rashes, lesions, abrasions, open wounds, erythema, or ecchymosis.. Negative: rashes Throat Pain/Nasal Course/Dx - Course Course Of Treatment: I suspect this is a viral illness causing her pain, but I asked Dr. Weaver to examine the patient as well. On her examination the patient had TMJ pain when opening/closing, but also had tenderness above and below the left eye when palpated. We discussed this case and agreed that there were no urgent exam findings and will proceed to treat conservatively. Pt was advised to try ibuprofen 600mg every 6 hours as needed for pain/discomfort. If her symptoms persist, I have provided her with a number for ENT to schedule a follow up appointment. At this time her diagnosis is of uncertain etiology; TMJ syndrome vs. Viral illness vs. recurrent montes's palsy vs. refractory Middle ear infection are among the most likely possibilities. - Differential Dx/Diagnosis Provider Diagnoses: Left ear pain Discharge - Discharge Plan Condition: Stable Disposition: HOME Referrals: No Primary Care Phys,NOPCP [Primary Care Provider] - Maximus Griffin MD [Medical Doctor] - If Needed Additional Instructions: If you develop a fever, shortness of breath, chest pain, new or worsening symptoms - please call your PCP or go to the ED. Your blood pressure was high at todays visit. Please see your primary provider within 4 weeks for recheck and re-evaluation. 1) May take 600mg ibuprofen every 6 hours as needed for pain. 2) If symptoms worsen or persist, please call ENT at the number below to schedule a follow up appointment.
== END 2017-05-16 17:33 | disposition home or self-care (01) ==
LOC: UCEAST 15:15
DX: H92.02 Otalgia, left ear (principal); Z87.891 Personal history of nicotine dependence
CPT/HCPCS: 99212; G0463

== ENCOUNTER 2017-09-13 14:14 | Emergency (ER) | payer BC ==
[2017-09-13] MEDS ORDERED: diPHENhydraMINE IV* 50 MG/ML 1 ml VIAL (BENADRYL) IV ONE (14:45)
[2017-09-13] MEDS ORDERED: NS 0.9% 1000 ML* 1,000 ML IV ONE ×3 (14:45→17:55)
[2017-09-13] MEDS ORDERED: Metoclopramide IV* 5 MG/ML 2 ML VIAL IV ONE (14:45)
[2017-09-13 15:08] LABS: ABS Basophils 0 10^3/ul (0-0.2); ABS Eosinophils 0 10^3/ul (0-0.6); ABS Lymphocytes 0.9 10^3/ul (1.0-4.8); ABS Monocytes 0.7 10^3/ul (0-0.8); ABS Neutrophils 2.8 10^3/ul (1.5-7.7); ABS Nucleated RBC 0 10^3/ul; Hematocrit 41 % (35-47); Hemoglobin 13.9 g/dl (12.0-16.0); Lymphocyte % 20.6 % (25-47); Mean Corpuscular HGB Conc 34 g/dl (31-36); Mean Corpuscular Hemoglobin 31 pg (27-31); Mean Corpuscular Volume 89 fL (80-97); Mean Platelet Volume 8.1 um3 (7.4-10.4); Nucleated Red Blood Cells % 0.1; Platelet Count 224 10^3/ul (150-450); Red Blood Count 4.55 10^6/ul (4.0-5.4); Red Cell Distribution Width 14 % (10.5-15); White Blood Count 4.5 10^3/ul (3.5-10.8)
[2017-09-13 15:23] LABS: EGFR Non-African American 80.7 (>60)
[2017-09-13 16:37] LABS: INR 0.99 (0.77-1.02)
--- NOTE | 2017-09-13 18:39 | RAD ---
HISTORY: Abdominal pain, elevated bilirubin COMPARISONS: None TECHNIQUE: Multiple transverse and longitudinal ultrasound images were obtained of the right upper quadrant of the abdomen using grayscale and color Doppler imaging. FINDINGS: LIVER: The liver is normal in shape, size, contour, and echogenicity. There are no focal parenchymal masses. There is normal hepatopedal flow of the portal vein on Doppler imaging. BILIARY TREE: There is no intrahepatic or extrahepatic biliary dilatation. The common duct measures 0.4 cm. GALLBLADDER: The gallbladder is well-visualized. There is no cholelithiasis, gallbladder wall thickening, pericholecystic fluid, or sonographic Dunbar sign. PANCREAS: The head of the pancreas is unremarkable. The tail of the pancreas is not well visualized secondary to overlying bowel gas. RIGHT KIDNEY: The right kidney is normal in shape, size, contour, and echogenicity. There is no hydronephrosis or nephrolithiasis. The right kidney measures 10.6 x 4.2 x 4.4 cm. AORTA AND IVC: The aorta and IVC are unremarkable. FLUID: There are no pleural effusions. There is no free fluid within the hepatorenal recess. OTHER FINDINGS: None. IMPRESSION: NO ACUTE SONOGRAPHIC PATHOLOGY OF THE VISUALIZED PORTION OF THE ABDOMEN.
--- NOTE | 2017-09-13 18:55 | RAD ---
CLINICAL HISTORY: Abdominal pain, diarrhea COMPARISON: None TECHNIQUE: Multiple contiguous axial CT scans were obtained of the abdomen and pelvis, without intravenous contrast enhancement. Coronal and sagittal multiplanar reformations are submitted for review. Oral contrast was not administered. FINDINGS: The study is limited by the lack of intravenous contrast. This limits evaluation of the solid organs and vasculature. LUNG BASES: The lung bases are clear. LIVER: The liver is normal in shape, size, contour, and attenuation. BILE DUCTS: There is no intrahepatic or extrahepatic biliary dilatation. GALLBLADDER: The gallbladder is normal, without pericholecystic inflammatory change. PANCREAS: The pancreas is normal, without mass or ductal dilatation. SPLEEN: Normal in size and appearance. UPPER GI TRACT: Evaluation of the gastrointestinal tract is limited by incomplete gastric distention. The upper GI tract is unremarkable. SMALL BOWEL AND MESENTERY: The small bowel is normal in contour, course, and caliber. There is no obstruction or dilatation. COLON: Evaluation is limited by the lack of oral and intravenous contrast; however, there appears to be diffuse mucosal thickening with mild stranding of the pericolonic fat throughout the colon. The appendix is not well visualized. ADRENALS: Normal bilaterally. KIDNEYS: The kidneys are normal in shape, size, contour, and axis. There is no hydronephrosis or nephrolithiasis. BLADDER: The bladder is smooth in contour. PELVIC ORGANS: The uterus and adnexa are grossly normal for technique. An IUD is noted. There is a simple right ovarian cyst measuring 3.1 cm. AORTA: The aorta is normal. IVC: Unremarkable LYMPH NODES: There is no lymphadenopathy by size criteria. ABDOMINAL WALL: There is no evidence for abdominal wall hernia. BONES AND SOFT TISSUES: Unremarkable OTHER: None IMPRESSION: THERE IS A SUGGESTION OF DIFFUSE MUCOSAL THICKENING OF THE COLON, WITH MILD STRANDING OF THE PERICOLONIC FAT THROUGHOUT THE COLON. GIVEN THE CLINICAL HISTORY, THIS IS MOST SUGGESTIVE OF COLITIS.
[2017-09-13] MEDS ORDERED: metroNIDAZOLE TAB* 250 MG PO ONE ×2 (20:49→20:50)
[2017-09-13] MEDS ORDERED: O ndansetron ODT 4MG 2TAB PRPK 4 MG PAK PO ONE (20:51)
--- NOTE | 2017-09-13 20:56 | ED ---
Kylah Davies Gabriel, scribed for Stan Anaya MD on 09/13/17 at 1558 . GI/ HPI - HPI Summary HPI Summary: This patient is a 47 year old F presenting to [facility] with a chief complaint of diarrhea since . The patient rates the pain 2/10 in severity. Patient reports ABD pain, intermittent blood in stool, and fatigue. Pt states if she eats or drinks anything she can hear a gurgling noise and 15 minutes later she will have diarrhea. Pt was just on several antibiotics. 10 days of clinda, 10 days of levaquin, and 21 days bactrim that just completed 2 weeks ago. She also recently began another round of clinda for a tooth removal but stopped due to upset stomach. - History of Current Complaint Chief Complaint: EDNauseaVomitDiarrh Time Seen by Provider: 09/13/17 15:48 Stated Complaint: ABD PAIN,DIARRHEA Hx Obtained From: Patient Hx Last Menstrual Period: mirena Onset/Duration: Started Days Ago, Still Present Timing: Constant Severity: Mild Current Severity: Mild Pain Intensity: 2 Location of Pain: Diffuse Associated Signs and Symptoms: Positive: Diarrhea, Other: - ABD pain, intermittent blood in stool, and fatigue - Allergy/Home Medications Allergies/Adverse Reactions: Allergies Allergy/AdvReac Type Severity Reaction Status Date / Time Penicillins Allergy Severe Hives Verified 09/13/17 14:24 Home Medications: Home Medications Aspirin EC TAB* [Ecotrin EC Low Dose 81 MG*] 81 mg PO DAILY 09/13/17 [History Confirmed 09/13/17] Atorvastatin* [Lipitor*] 40 mg PO DAILY 09/13/17 [History Confirmed 09/13/17] Biotin 2,500 mcg PO DAILY 09/13/17 [History Confirmed 09/13/17] Citalopram TAB* [CeleXA TAB*] 5 mg PO DAILY 09/13/17 [History Confirmed 09/13/17 ] Cyanocobalamin TAB* [Vitamin B12 TAB*] 500 mcg PO DAILY 09/13/17 [History Confirmed 09/13/17] Metoprolol Succinate XL TAB* [Toprol XL TAB*] 25 mg PO DAILY 09/13/17 [History Confirmed 09/13/17] [place]-3 Fatty Acids (Nf) [Fish Oil (NF)] 1,000 mg PO DAILY 09/13/17 [History Confirmed 09/13/17] PMH/Surg Hx/FS Hx/Imm Hx Endocrine/Hematology History: Denies: Hx Diabetes, Hx Thyroid Disease Cardiovascular History: Reports: Hx Hypertension, Hx Myocardial Infarction - 2011 Denies: Hx Pacemaker/ICD Respiratory History: Denies: Hx Asthma, Hx Chronic Obstructive Pulmonary Disease (COPD) GI History: Denies: Hx Ulcer History: Denies: Hx Renal Disease Sensory History: Denies: Hx Hearing Aid Neurological History: Reports: Other Neuro Impairments/Disorders - montes's palsy Psychiatric History: Reports: Hx Anxiety Denies: Hx Panic Disorder - Surgical History Surgery Procedure, Year, and Place: 1998, [facility]. Angioplasty 04/02/12 Hx Anesthesia Reactions: No Infectious Disease History: No Infectious Disease History: Denies: Hx Clostridium Difficile, Hx Hepatitis, Hx Human Immunodeficiency Virus (HIV), Hx of Known/Suspected MRSA, Hx Shingles, Hx Tuberculosis, Hx Known/ Suspected VRE, Hx Known/Suspected VRSA, History Other Infectious Disease, Traveled Outside the [place] in Last 30 Days - Family History Known Family History: Positive: Other - Cancer Negative: Respiratory Disease, Seizure Disorder - Social History Lives: With Family Alcohol Use: Rare Substance Use Type: Reports: None Smoking Status (MU): Former Smoker Review of Systems Positive: Fatigue Positive: Abdominal Pain, Diarrhea, Other - blood in stool All Other Systems Reviewed And Are Negative: Yes Physical Exam - Summary Physical Exam Summary: General: well-appearing, no pain distress Skin: warm, color reflects adequate perfusion, dry Head: normal Eyes: EOMI, JHONNY ENT: oral mucosa is dry Neck: supple, nontender Respiratory: CTA, breath sounds present Cardiovascular: RRR Abdomen: soft, nontender Bowel: present Musculoskeletal: normal, strength/ROM intact Neurological: normal, sensory/motor intact, A&O x3 Psychological: affect/mood appropriate Triage Information Reviewed: Yes Vital Signs On Initial Exam: Initial Vitals Temp Pulse Resp BP Pulse Ox 98.7 F 87 15 135/72 98 09/13/17 14:18 09/13/17 14:18 09/13/17 14:18 09/13/17 14:18 09/13/17 14:18 Vital Signs Reviewed: Yes Diagnostics - Vital Signs Vital Signs Temp Pulse Resp BP Pulse Ox 09/13/17 14:18 98.7 F 87 15 135/72 98 - Laboratory Lab Results: Lab Results 09/13/17 09/13/17 Range/Units 15:01 15:01 WBC 4.5 (3.5-10.8) 10^3/ul RBC 4.55 (4.0-5.4) 10^6/ul Hgb 13.9 (12.0-16.0) g/dl Hct 41 (35-47) % MCV 89 (80-97) fL MCH 31 (27-31) pg MCHC 34 (31-36) g/dl RDW 14 (10.5-15) % Plt Count 224 (150-450) 10^3/ul MPV 8.1 (7.4-10.4) um3 Neut % (Auto) 61.0 (38-83) % Lymph % (Auto) 20.6 L (25-47) % [place] % (Auto) 16.5 H (0-7) % Eos % (Auto) 1.0 (0-6) % Baso % (Auto) 0.9 (0-2) % Absolute Neuts (auto) 2.8 (1.5-7.7) 10^3/ul Absolute Lymphs (auto) 0.9 L (1.0-4.8) 10^3/ul Absolute Monos (auto) 0.7 (0-0.8) 10^3/ul Absolute Eos (auto) 0 (0-0.6) 10^3/ul Absolute Basos (auto) 0 (0-0.2) 10^3/ul Absolute Nucleated RBC 0 10^3/ul Nucleated RBC % 0.1 Sodium 139 (139-145) mmol/L Potassium 3.5 (3.5-5.0) mmol/L Chloride 104 (101-111) mmol/L Carbon Dioxide 27 (22-32) mmol/L Anion Gap 8 (2-11) mmol/L BUN 11 (6-24) mg/dL Creatinine 0.77 (0.51-0.95) mg/dL Est GFR ( Amer) 103.8 (>60) Est GFR (Non-Af Amer) 80.7 (>60) BUN/Creatinine Ratio 14.3 (8-20) Glucose 85 (70-100) mg/dL Calcium 8.7 (8.6-10.3) mg/dL Total Bilirubin 1.40 H (0.2-1.0) mg/dL AST 17 (13-39) U/L ALT 11 (7-52) U/L Alkaline Phosphatase 51 (34-104) U/L Total Protein 6.5 (6.4-8.9) g/dL Albumin 3.8 (3.2-5.2) g/dL Globulin 2.7 (2-4) g/dL Albumin/Globulin Ratio 1.4 (1-3) Lipase < 10 L (11.0-82.0) U/L Result Diagrams: 09/13/17 15:01 09/13/17 15:01 Lab Statement: Any lab studies that have been ordered have been reviewed, and results considered in the medical decision making process. - Ultrasound No standard instances Ultrasound Interpretation Completed By: Radiologist - Gallbladder US reveals, per radiologist, NO ACUTE SONOGRAPHIC PATHOLOGY OF THE VISUALIZED PORTION OF THE ABDOMEN. ED physician has reviewed this radiology report. GIGU Course/Dx - Course Course Of Treatment: DISCUSSED RESULTS WITH THE PATIENT. WILL TREAT WITH FLAGYL. F/U PMD/INFECTIOUS DISEASE; RETURN IF WORSE. - Diagnoses Provider Diagnoses: Clostridium difficile colitis Discharge - Sign-Out/Discharge Documenting (check all that apply): Discharge/Admit/Transfer - Discharge Plan Condition: Stable Disposition: HOME Prescriptions: metroNIDAZOLE [Metronidazole] 500 mg PO TID #28 tablet Ondansetron ODT TAB* [Zofran 4 MG Odt TAB*] 4 mg PO Q6H PRN #15 tab.odt PRN Reason: Nausea Patient Education Materials: Clostridium Difficile Infection (ED) Referrals: Meghan Wilburn, LOWELL [Primary Care Provider] - Kulwant Molina MD [Medical Doctor] - Additional Instructions: FOLLOW UP WITH YOUR PRIMARY CARE DOCTOR AND INFECTIOUS DISEASE, DR MOLINA. RETURN TO THE EMERGENCY DEPARTMENT FOR ANY WORSENING OF YOUR CONDITION OR QUESTIONS OR CONCERNS. - Billing Disposition and Condition Condition: STABLE Disposition: HOME The documentation as recorded by the Kylah pat Gabriel accurately reflects the service I personally performed and the decisions made by me, Stan Anaya MD.
[2017-09-13 21:07] VITALS: BP 101/82
--- NOTE | 2017-09-14 10:49 | ED ---
Progress - Progress Note Progress Note: Patient so culture positive for Clostridium difficile as well as stool call blood. Patient was started on Flagyl and advised follow-up with Dr. Castillo. No change in treatment at this time. Course/Dx - Course Course Of Treatment: DISCUSSED RESULTS WITH THE PATIENT. WILL TREAT WITH FLAGYL. F/U PMD/INFECTIOUS DISEASE; RETURN IF WORSE. - Diagnoses Provider Diagnoses: Clostridium difficile colitis Discharge - Sign-Out/Discharge Documenting (check all that apply): Post-Discharge Follow Up - Discharge Plan Condition: Stable Disposition: HOME Prescriptions: metroNIDAZOLE [Metronidazole] 500 mg PO TID #28 tablet Ondansetron ODT TAB* [Zofran 4 MG Odt TAB*] 4 mg PO Q6H PRN #15 tab.odt PRN Reason: Nausea Patient Education Materials: Clostridium Difficile Infection (ED) Referrals: Meghan Wilburn, TRACK LAYER [Primary Care Provider] - Adam ATKINS,Kulwant Taylor [Medical Doctor] - Additional Instructions: FOLLOW UP WITH YOUR PRIMARY CARE DOCTOR AND INFECTIOUS DISEASE, DR MOLINA. RETURN TO THE EMERGENCY DEPARTMENT FOR ANY WORSENING OF YOUR CONDITION OR QUESTIONS OR CONCERNS. - Billing Disposition and Condition Condition: STABLE Disposition: HOME
== END 2017-09-13 21:19 | disposition home or self-care (01) ==
LOC: ED 14:14
DX: A04.72 Enterocolitis due to Clostridium difficile, not specified as recurrent (principal); R19.7 Diarrhea, unspecified; I25.2 Old myocardial infarction; Z87.891 Personal history of nicotine dependence; R53.83 Other fatigue; Z79.82 Long term (current) use of aspirin; Z88.0 Allergy status to penicillin
CPT/HCPCS: 36415; 74176; 76705; 80053; 82270; 83630; 83690; 84702; 85025; 85610; 86140; 87045; 87046; 87077; 87328; 87329; 87493; 87899; 96374; 96375; 99285; A9270-GY; J1200; J2765

== ENCOUNTER 2019-02-20 06:25 | Day surgery (SDC) | payer BC ==
[~2019-02-20 06:25] MED LIST: Buffered Lidocaine 1% SYRIN* 1 ML/SYRINGE INTRADERM ONE; Famotidine IV* 10 MG/ML 2 ML (20 mg) IV ONE; Lactated Ringers 1000 ML Bag* 1,000 ML IV SCH
[2019-02-20] MEDS ORDERED: Famotidine IV* 10 MG/ML 2 ML (20 mg) ONE (06:36)
[2019-02-20] MEDS ORDERED: Clindamycin 900 MG/D5W BAG(*) 900 MG/50 ML BAG IVPB ONE (06:37)
[2019-02-20] MEDS ORDERED: Dexamethasone IV* 4 MG/ML 1 ML (4 MG) ONE ×2 (07:10→07:14)
[2019-02-20] MEDS ORDERED: Lidocaine 1% INJ* 10 MG/ML 30 ML SDV ONE (07:10)
[2019-02-20] MEDS ORDERED: Bupivacaine 0.5% SDV PF* 30ML VIAL ONE (07:11)
[2019-02-20] MEDS ORDERED: KETAMINE HCL* 50 MG/ML 10 ML VIAL ONE (07:14)
[2019-02-20] MEDS ORDERED: Midazolam* 1 MG/ML 5 ML VIAL (5 MG) ONE (07:14)
[2019-02-20] MEDS ORDERED: fentaNYL* 50 MCG/ML 2 ML VIAL (100 MCG VIAL) ONE (07:14)
[2019-02-20] MEDS ORDERED: Propofol* 10 MG/ML 20 ML BTL ONE ×3 (07:14→08:30)
[2019-02-20] MEDS ORDERED: Ondansetron INJ* 2 MG/ML VIAL ONE (07:14)
[2019-02-20] MEDS ORDERED: Ketorolac INJ* 30 MG/ML 1 ML VIAL ONE (07:14)
[2019-02-20] MEDS ORDERED: Lidocaine 2% PF * 5 ML VIAL ONE (07:14)
[2019-02-20] MEDS ORDERED: Ondansetron INJ* 2 MG/ML VIAL IV PRN (08:53)
[2019-02-20] MEDS ORDERED: Naloxone* 0.4 MG/ML 1 ML VIAL IV PRN (08:53)
[2019-02-20] MEDS ORDERED: oxyCODONE/Acetamin 5/325 MG* TAB PO PRN (08:53)
[2019-02-20] MEDS ORDERED: fentaNYL* 50 MCG/ML 2 ML VIAL (100 MCG VIAL) IV PRN (08:53)
[2019-02-20 10:01] VITALS: BP 109/59
--- NOTE | 2019-02-20 16:14 | OP ---
DATE OF OPERATION: 02/20/19 - [facility] DATE OF : 72 SURGEON: Aquiles Ivory DPM. STEEPING PRESS TENDER: None. ANESTHESIA: MAC with local. PRE-OP DIAGNOSES: 1. Painful bunion deformity with hallux limitus, left foot. 2. Painful tailor's bunion deformity, left foot. POST-OP DIAGNOSES: 1. Painful bunion deformity with hallux limitus, left foot. 2. Painful tailor's bunion deformity, left foot. OPERATIVE PROCEDURE: 1. Bunionectomy with first metatarsal osteotomy, left foot. 2. Tailor's bunionectomy, left foot. 3. Fifth metatarsal osteotomy, left foot. PATHOLOGY: Degenerative bone. HEMOSTASIS: Rheumatic ankle tourniquet. ESTIMATED BLOOD LOSS: Less than 20 cc. MATERIALS: Two of the 3.0 mm can Jaison screws. INDICATION: The patient with chronic left forefoot pain and deformities causing pain when walking wearing shoes. She has a bunion deformity with decreased range of motion as well as hypertrophied and prominent lateral fifth metatarsal head. She opted surgery at this time to attempt to decrease the pain and improve her function. DESCRIPTION OF PROCEDURE: The patient was brought to the operating room, placed on the operating room table in supine position. Anesthesia department administered IV sedation and peripheral nerve block was performed about the left foot with a 1:1 mixture of 1% lidocaine plain and 0.5% Marcaine plain. Left foot was then prepped and draped in usual fashion. Left foot was then exsanguinated with an Esmarch bandage and the pneumatic ankle tourniquet inflated to 250 mmHg above well-padded left ankle. Attention was directed to the dorsomedial aspect of the left great toe joint where a linear incision was made. The incision was deepened through subcutaneous tissues with care being taken to retract neurovascular structures and cauterize superficial bleeders as needed. Capsular and periosteal incision was made to allow for exposure of the joint and osseous surfaces. McGlamry elevator was needed to free plantar lateral adhesions within the great toe joint and there was noted be hypertrophic bone medially in the first metatarsal head. Next, a traditional lateral release was performed in the first intermetatarsal space releasing the conjoined tendon of the abductor hallucis portion of lateral capsule, lateral fibular sesamoid ligament, and extensor hallucis brevis tendon was identified and transected. This allowed for relaxation of all lateral contractures. The medial eminence of the first metatarsal head was resected with sagittal saw and with care being taken to maintain the sagittal groove. Next, a chevron-type osteotomy was performed at the first metatarsal head, apex just dorsal and proximal to the geometric center. The capital fragment was transposed medially to offer some plantar flexion and correction of the inner metatarsal angle. In the corrected position, position was achieved with a wire from screw set and after assessing positioning with the C arm and using standard technique , a 3.0 mm cannulated Jaison screw was placed across the osteotomy site with care being taken to ensure that the tip of the screw did not penetrate into the joint. The temporary fixation was removed. The osteotomy was then inspected, found to be solid with no detectable motion or gapping and the screw was 2 fingers tight. Position and fixation was assessed with C-arm. Sagittal saw was used to resect redundant medial shelf of the metatarsal and power juani was used to smooth rough edges. Surgical site was flushed with copious amount of normal sterile saline. A medial capsulorrhaphy was performed, bursectomy done at the medial capsule. After a copious flush with normal sterile saline, the capsular and periosteal tissues were reapproximated and secured with 2-0 Vicryl , subcutaneous tissues were reapproximated with 4-0 Vicryl and skin was closed with 5-0 nylon. Attention was then directed to the dorsolateral aspect of the fifth metatarsal on the left foot where a linear incision was made. The incision was deepened through subcutaneous tissues with care being taken to retract the neurovascular structures and cauterize superficial bleeders as needed. A linear periosteal and capsular incision was made to allow for exposure of the osseous structures. There was noted to be hypertrophic bone at the lateral aspect of the fifth metatarsal head which was resected with a sagittal saw. Next, on transverse plane, the osteotomy was performed shifting the capital fragment medially to allow for some slight rotation but also correction of the intermetatarsal angle. Temporary fixation was achieved with a bone clamp, and after assessing with the C-arm, the fixation was performed with the 3-hole Hatfield screw and using standard technique. The temporary fixation was removed and the osteotomy was found to be solid with no detectable motion or gapping. The position and correction was assessed with the C-arm. Redundant lateral shelf of bone was resected and power juani was used to smooth rough edges. Surgical site was flushed with copious amount of normal sterile saline. The periosteal and capsular tissues were reapproximated and secured with 4-0 Vicryl, the subcutaneous tissues were reapproximated with 4-0 Vicryl and skin was closed with 5-0 nylon. A 12 mg total of dexamethasone phosphate was infiltrated about the surgical site and the incisions were dressed with Xeroform gauze and a light sterile mildly compressive dressing was applied with 4x4, gauze, Lior and a light Coban wrap. The pneumatic ankle tourniquet was deflated about the left ankle and a prompt hyperemic response noted to all 5 digits of the patient's left foot. Having appeared to have tolerated the procedure and anesthesia well, the patient was transported via cart from the operating room to Recovery in satisfactory condition with capillary refill less than 3 seconds to all digits of the left foot. [id number]/[facility] #: [id number] [facility] [place] [facility]
== END 2019-02-20 10:02 | disposition home or self-care (01) ==
LOC: OREAST 06:25
PROVIDERS: ATTEND Podiatrist Foot Surgery
DX: M21.612 Bunion of left foot (principal); M21.622 Bunionette of left foot; E78.5 Hyperlipidemia, unspecified; I25.10 Atherosclerotic heart disease of native coronary artery without angina pectoris; I25.2 Old myocardial infarction; F41.9 Anxiety disorder, unspecified; Z87.891 Personal history of nicotine dependence
CPT/HCPCS: 76000; 81025; 88304; 88311; C1713; C1776; J1100; J1885; J2250; J2405; J2704; J3010; J3490

== ENCOUNTER 2019-05-29 15:56 | Emergency (ER) | payer SELFPAY ==
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
[2019-05-29] MEDS ORDERED: Acetaminophen TAB* 325 MG PO ONE (16:25)
[2019-05-29 17:41] VITALS: BP 129/63
== END 2019-05-29 17:40 | disposition home or self-care (01) ==
LOC: ED 15:56
DX: S20.211A Contusion of right front wall of thorax, initial encounter (principal); S70.01XA Contusion of right hip, initial encounter; V49.9XXA Car occupant (driver) (passenger) injured in unspecified traffic accident, initial encounter; Y92.9 Unspecified place or not applicable; M54.2 Cervicalgia; Z87.891 Personal history of nicotine dependence; I10 Essential (primary) hypertension; I25.2 Old myocardial infarction; E78.00 Pure hypercholesterolemia, unspecified; F41.9 Anxiety disorder, unspecified; F32.9 Major depressive disorder, single episode, unspecified
CPT/HCPCS: 99282; A9270-GY